=== PATIENT | male | born 1960 | race Caucasian/White ===

== ENCOUNTER 2023-06-26 08:27 | Emergency (ER) | payer OTHER ==
[~2023-06-26] VITALS: Ht 185.4 cm; Wt 137.4 kg
[2023-06-26 09:07] LABS: BASOPHILS # (AUTO) 0.1 (0.0-0.1); EOSINOPHILS # (AUTO) 0.2 (0.0-0.4); EOSINOPHILS % 2.1 % (0.0-6.0); HEMATOCRIT 42.2 % (38.2-49.6); HEMOGLOBIN 14.7 g/dL (14.0-18.0); LYMPHOCYTES # (AUTO) 1.7 (1.0-3.2); LYMPHOCYTES % 15.1 % (18.0-39.1); MEAN CORPUSCULAR HEMOGLOBIN 29.4 pg (28-32); MEAN CORPUSCULAR HGB CONC 34.8 g/dL (31-35); MEAN CORPUSCULAR VOLUME 84.4 fL (81-99); MONOCYTES # (AUTO) 1.5 (0.2-0.8); NEUTROPHILS # (AUTO) 7.6 (2.1-6.9); NEUTROPHILS % 68.1 % (38.7-80.0); PLATELET COUNT 236 x10e3/uL (140-360); RED CELL DISTRIBUTION WIDTH 13.7 % (11.7-14.4); WHITE BLOOD COUNT 11.21 x10e3/uL (4.8-10.8)
[2023-06-26 09:39] LABS: ALBUMIN 4.3 g/dL (3.5-5.0); ALBUMIN/GLOBULIN RATIO 1.3 (0.8-2.0); CALCIUM 9.3 mg/dL (8.4-10.2); CREATININE, SERUM 1.12 mg/dL (0.72-1.25)
[2023-06-26] MEDS ORDERED: ELIMITE60 GM TOP (10:01)
[2023-06-26 10:47] VITALS: BP 145/90; PULSE 80; RESP 18; O2SAT 100
[2023-06-27] MEDS ORDERED: CYCLOBENZAPRINE5 MG PO (00:52)
[2023-06-27] MEDS ORDERED: NAPROSYN500 MG PO (00:52)
== END 2023-06-26 10:45 | disposition home or self-care (01) ==
LOC: ER 08:34
DX: M79.602 Pain in left arm (principal); L98.8 Other specified disorders of the skin and subcutaneous tissue
CPT/HCPCS: 36415; 71045; 80053; 84484; 85025; 99284

== ENCOUNTER 2023-06-27 00:36 | Emergency (ER) | payer OTHER ==
[~2023-06-27] VITALS: Ht 185.4 cm; Wt 137.4 kg
[~2023-06-27 00:36] MED LIST: ELIMITE60 GM TOP
[2023-06-27 00:48] VITALS: O2SAT 98
[2023-06-27] MEDS ORDERED: NAPROSYN500 MG PO (00:52)
[2023-06-27] MEDS ORDERED: CYCLOBENZAPRINE5 MG PO (00:52)
== END 2023-06-27 00:55 | disposition home or self-care (01) ==
LOC: ER 00:40
DX: M79.642 Pain in left hand (principal); M54.50 Low back pain, unspecified; I10 Essential (primary) hypertension; E78.5 Hyperlipidemia, unspecified; F17.210 Nicotine dependence, cigarettes, uncomplicated
CPT/HCPCS: 99282